=== PATIENT | male | born 2000 | race African-American/Black ===

== ENCOUNTER 2025-06-12 21:49 | Emergency (ER) | payer MEDICAID ==
[~2025-06-12] VITALS: Ht 177.8 cm; Wt 79.7 kg
--- NOTE | 2025-06-12 23:00 | DVH ---
CHEST RADIOGRAPH Indication: left sided chest wall pain Technique: 2 views Comparison: None FINDINGS: Lines and Tubes: None. Lungs/Pleura: No focal consolidation, pleural effusion or pneumothorax. Cardiomediastinum: Unremarkable. Other: No acute osseous abnormality. IMPRESSION: 1. No acute cardiopulmonary abnormality.
[2025-06-13 00:24] VITALS: BP 112/73; RESP 14; TEMP 98.4; O2SAT 100
[2025-06-13] MEDS ORDERED: IBUP-1456 PO (00:45)
--- NOTE | 2025-06-13 00:45 | ED.PDOC ---
HPI Comments 25 YEAR OLD MALE PRESENTS TO ER WITH COMPLAINTS OF CHEST WALL INJURY X 1 DAY. PATIENT STATES HE FELT A SUDDEN "TEARING SENSATION" AND SUDDEN ONSET OF 10/10 PAIN TO LEFT LATERAL CHEST WALL WITH RADIATION TOWARDS LEFT SHOULDER AT 9 P.M. 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 DENIES USE OF MEDICATIONS FOR CURRENT SYMPTOMS AND PRESENTS TO ER IN MILD DISTRESS. NOTES HIS PAIN IS WORSE WITH MOVEMENT AND BETTER WITH REST. DENIES CHEST PAIN, SHORTNESS OF BREATH, N/V, BACK PAIN, PALPITATIONS OR ANY FURTHER SYMPTOMS/COMPLAINTS Chief Complaint: Chest Wall Injury Time Seen by MD: 21:55 Primary Care Provider: BIB Reviewed Notes: Nurses Notes, Medications, Allergies Allergies: Coded Allergies: NO KNOWN ALLERGIES (Unverified , 03/17/11) Home Meds Active Scripts Ibuprofen (Ibuprofen) 800 Mg Tab, 1 TAB PO TID PRN, #30 TAB 0 Refills Prov:ARJUN JEAN-BAPTISTE 06/13/25 Information Source: Patient Mode of Arrival: Ambulatory Past Medical History PAST MEDICAL HISTORY: Asthma Surgical History: Denies all surgeries Family History Family History: Unknown Social History Smoker: Non-Smoker Alcohol: Denies ETOH Use Drugs: Denies Drug Use Lives In: Home Constitutional: denies: chills, diaphoresis, fatigue, fever, malaise, sweats, weakness, others EENTM: denies: blurred vision, double vision, ear bleeding, ear discharge, ear drainage, ear pain, ear ringing, eye pain, eye redness, hearing loss, mouth pain, mouth swelling, nasal discharge, nose bleeding, nose congestion, nose pain, photophobia, tearing, throat pain, throat swelling, voice changes, others Respiratory: denies: cough, hemoptysis, orthopnea, SOB at rest, shortness of breath, SOB with excertion, stridor, wheezing, others Cardiovascular: reports: others (As stated in HPI) Gastrointestinal: denies: abdomen distended, abdominal pain, blood streaked bowels, constipated, diarrhea, dysphagia, difficulty swallowing, hematemesis, melena, nausea, poor appetite, poor fluid intake, rectal bleeding, rectal pain, vomiting, others Genitourinary: denies: burning, dysuria, flank pain, frequency, hematuria, incontinence, penile discharge, penile sore, pain, testicle pain, testicle swelling, urgency, others Neurological: denies: dizziness, fainting, headache, left sided numbness, left sided weakness, numbness, paresthesia, pre-existing deficit, right sided numbness, right sided weakness, seizure, speech problems, tingling, tremors, weakness, others Musculoskeletal: reports: others (As stated in HPI) Integumetry: denies: bruises, change in color, change in hair/nails, dryness, laceration, lesions, lumps, rash, wounds, others Allergic/Immunocompromised: denies: Difficulty Healing, Frequent Infections, Hives, Itching, others Hematologic/Lymphatic: denies: anemia, blood clots, easy bleeding, easy bruising, swollen glands, others Endocrine: denies: excessive hunger, excessive sweating, excessive thirst, excessive urination, flushing, intolerance to cold, intolerance to heat, unexplained weight gain, unexplained weight loss, others Psychiatric: denies: anxiety, bipolar disorder, depression, hopeless, panic disorder, schizophrenia, sleepless, suicidal, others Physical Exam General Appearance: Mild Distress HEENT: Normal ENT Inspection, PERRL/EOMI, Pharynx Normal, TMs Normal Neck: Full Range of Motion, Non-Tender, Normal, Normal Inspection Respiratory: Lungs Clear, No Accessory Muscle Use, No Respiratory Distress, Normal Breath Sounds, Other (TTP to left lateral upper chest wall and to left GH joint noted. No skin changes noted) Cardiovascular: No Murmur, No Gallop, Regular Rate/Rhythm Breast Exam: Deferred Gastrointestinal: NOT DONE Genitalia: Deferred Pelvic: Deferred Rectal: Deferred Extremities: Normal capillary refill, Normal range of motion Neurologic: Alert, No Motor Deficits, No Sensory Deficits Cerebellar Function: Normal Reflexes: Normal Skin: Dry, Normal Color, Warm Peripheral Pulses: 2+ carotid (R), 2+ carotid (L), 2+ Radial (R), 2+ Radial (L), 2+ Brachial (R), 2+ Brachial (L) Lymphatic: No Adenopathy EKG EKG : Pulse Rate (adult): 73 [place]: Normal Cardiac Rhythm: NSR (SR) Block: None ST: Normal Was a procedure done? Was a procedure done?: No Sedation Sedation?: No CP Differential Dx Differential Diagnosis: SD, Other (Pneumothorax, cardiac contusion) Differential Diagnosis: Aortic dissection X-Ray, Labs, Meds, VS Vital Signs Date Time Temp Pulse Resp B/P (MAP) Pulse Ox O2 Delivery O2 Flow Rate FiO2 06/13/25 00:53 84 06/13/25 00:24 98.4 67 14 112/73 (86) 100 98.4 06/13/25 00:01 73 06/12/25 21:51 98.2 81 13 144/94 98 98.2 Lab Test 06/12/25 22:09 Range/Units Troponin I High Sensitivity < 3 L </=54 ng/L Current Medications Medications (Trade) Dose Ordered Sig/Nuvia Route Start Time Stop Time Status Last Admin Ketorolac Tromethamine (Toradol Injection) 60 mg ONCE ONCE IM 06/13/25 00:45 06/13/25 00:46 DC 06/13/25 00:46 PATIENT: ANNIE RAINEYT: [id number]: [id number] : 2000 LOC: ER ROOM / BED: / AGE / SEX: 25 / M ADM STATUS: REG ER SERVICE 54 ORDERING PHYSICIAN: ARJUN JEAN-BAPTISTE PROCEDURE(s): CXR2 - CHEST TWO VIEWS ROUTINE REASON: left sided chest wall pain ORDER NUMBER(s): [id number], ACCESSION NUMBER(s): [id number] CHEST RADIOGRAPH Indication: left sided chest wall pain Technique: 2 views Comparison: None FINDINGS: Lines and Tubes: None. Lungs/Pleura: No focal consolidation, pleural effusion or pneumothorax. Cardiomediastinum: Unremarkable. Other: No acute osseous abnormality. IMPRESSION: 1. No acute cardiopulmonary abnormality. ATED BY: CALEB LEARY MD DICTATED DATE/TIME: 06/12/252256 SIGNED BY: CALEB LEARY MD SIGNED DATE/TIME: 06/12/252256 CC: Chest x-ray reviewed EKG reviewed Troponin reviewed-normal Toradol 60 mg IM ordered Left arm sling applied for comfort Advised on rest/no strenuous activity and alternate ice on/off as needed for pain Patient had improvement in symptoms and in no distress prior to discharge Advised to follow up with PCP and Orthopedics/sports Medicine in 1-2 days Patient verbalized understanding and agreeable with current plan of care Advised to return to ER immediately if symptoms worsen Images Reviewed?: Images reviewed and evaluated by me Time of 1ST Reevaluation: 00:22 Reevaluation 1ST: N/A Patient Education/Counseling: Diagnosis, Treatment, Prognosis, Need For Follow Up Family Education/Counseling: No Family Present SEPSIS Sepsis Screen Date sepsis recognized/suspect: Jun 12, 2025 Time Sepsis recognized/suspect: 2150 Recent Procedure: No On Antibiotic Therapy: No Respiratory Rate >20: No Heart Rate >90: No Temp<36 C (96.8 F) or >38.3 C: No SBP <90 or MAP <65 mmHG: No New Acute Mental Status Change: No Is the patient on CPAP, BIPAP,: No Physician Orders Electrocardigram (06/12/25 21:55) Chest Two Views Routine (06/12/25 21:55) Apply Sling (06/13/25 00:41) Vital Signs Date Time Temp Pulse Resp B/P (MAP) Pulse Ox O2 Delivery O2 Flow Rate FiO2 06/13/25 00:53 84 06/13/25 00:24 98.4 67 14 112/73 (86) 100 98.4 06/13/25 00:01 73 06/12/25 21:51 98.2 81 13 144/94 98 98.2 Medications Medications Dose Ordered Sig/Nuvia Route Start Time Stop Time Status Last Admin Dose Admin Ketorolac Tromethamine 60 mg ONCE ONCE IM 06/13/25 00:45 06/13/25 00:46 DC 06/13/25 00:46 Departure 1 Departure Time of Disposition: 00:44 Impression: Primary Impression: Muscle strain of chest wall Qualified Codes: S29.011A - Strain of muscle and tendon of front wall of thorax, initial encounter Disposition: HOME / SELF CARE / HOMELESS Condition: Stable e-Prescriptions Ibuprofen (Ibuprofen) 800 Mg Tab 1 TAB PO TID PRN, #30 TAB 0 Refills Prov: ARJUN JEAN-BAPTISTE 06/13/25 Discharged With: Friend Critical Care Note Critical Care Time?: No Stability Stability form required: No Heart Score Heart Score: Heart Score Response (Comments) Value History N/A 0 EKG N/A 0 Age N/A 0 Risk Factors N/A 0 Troponin N/A 0 Total 0 ARJUN JEAN-BAPTISTE Jun 13, 2025 00:45
[2025-06-13] MEDS: KETOROLAC TROMETH 60MG/2ML VIAL IM ONE (00:46)
[2025-06-13 01:02] VITALS: PULSE 73
--- NOTE | 2025-06-13 07:34 | ECG ---
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
== END 2025-06-13 00:53 | disposition home or self-care (01) ==
LOC: ER 21:49
DX: S29.011A Strain of muscle and tendon of front wall of thorax, initial encounter (principal); J45.909 Unspecified asthma, uncomplicated; X58.XXXA Exposure to other specified factors, initial encounter; Y93.43 Activity, gymnastics; Y92.89 Other specified places as the place of occurrence of the external cause; Y99.8 Other external cause status
CPT/HCPCS: 36415; 71046; 84484; 93005; 96372; 99285; J1885